=== PATIENT | female | born 1975 | race Caucasian/White ===

== ENCOUNTER 2019-01-01 16:31 | Emergency (ER) | payer OTHER, BC ==
[2019-01-01] MEDS: KETOROLAC 30 MG INJ IM (20:20)
== END 2019-01-01 21:25 | disposition home or self-care (01) ==
LOC: E/R 16:31
DX: R07.9 Chest pain, unspecified (principal)
CPT/HCPCS: 71045; 81025; 93005; 96372; 99284-25